=== PATIENT | female | born 1945 | race Caucasian/White ===

== ENCOUNTER 2020-12-21 11:42 | Emergency (ER) | payer MEDICARE ==
[~2020-12-21] VITALS: Ht 167.6 cm; Wt 54.4 kg
[2020-12-21 12:27] LABS: APPEARANCE,URINE Cloudy (CLEAR); BILIRUBIN,URINE Negative (NEGATIVE); COLOR,URINE Yellow (YELLOW); GLUCOSE, URINE (UA) Negative (NEGATIVE); KETONES,URINE 15 mg/dL (NEGATIVE); LEUKOCYTE ESTERASE ,URINE Moderate (NEGATIVE); NITRATE,URINE Negative (NEGATIVE); OCCULT BLOOD,URINE Negative (NEGATIVE); PROTEIN,URINE Trace mg/dL (NEGATIVE)
[2020-12-21 12:30] LABS: RBC,URINE 0-1 /HPF (0-1)
[2020-12-21 12:31] LABS: BACTERIA,URINE Rare /HPF (None Seen); MUCUS,URINE Few LPF (None Seen); SQUAMOUS EPITHELIAL CELL,UR Few /HPF (0-2); WBC,URINE 26-50 /HPF (0-1)
[2020-12-21] MEDS ORDERED: LIDOCAINE HCL-MPF 1% 2ML VIAL ONE (12:43)
[2020-12-21 12:50] LABS: BASOPHILS % (AUTO) 0.4 % (0.0-5.0); EOSINOPHILS % (AUTO) 0.6 % (0.0-8.0); HEMATOCRIT 40.2 % (36-48); LYMPHOCYTES % (AUTO) 18.4 % (21.0-51.0); MEAN CORPUSCULAR HEMOGLOBIN 29.8 pg (27.0-33.0); MEAN CORPUSCULAR HGB CONC 32.6 g/dL (32.0-36.0); MEAN CORPUSCULAR VOLUME 91.6 fL (79-99); MONOCYTES % (AUTO) 2.7 % (3.0-13.0); NEUTROPHILS % (AUTO) 77.6 % (40.0-77.0); PLATELET COUNT (AUTO) 248 K/uL (130-400); RED BLOOD CELL COUNT(AUTO) 4.39 MIL/uL (4.00-5.50); RED CELL DISTRIBUTION WIDTH 12.9 % (11.0-15.5); WHITE BLOOD COUNT (AUTO) 11.8 K/uL (4.8-10.8)
[2020-12-21 13:00] LABS: POTASSIUM 3.9 mmol/L (3.5-5.1)
[2020-12-21] MEDS ORDERED: CEFTRIAXONE 1G VIAL IM ONE (13:00)
[2020-12-21 13:05] LABS: ALBUMIN 3.7 g/dL (3.5-5.0); BILIRUBIN,TOTAL 0.3 mg/dL (0.2-1.0); TOTAL PROTEIN, SERUM 7.2 g/dL (6.0-8.3)
[2020-12-21] MEDS ORDERED: PHENAZOPYRIDINE HCL 200 MG TABLET PO STA (13:57)
[2020-12-21] MEDS ORDERED: PHENAZOPYRIDINE HCL 200 MG TABLET ONE (14:00)
[2020-12-21] MEDS ORDERED: PHEN-847 PO (14:01)
[2020-12-21] MEDS ORDERED: CEPH500B PO (14:01)
[2020-12-21 14:32] VITALS: BP 136/51
[2020-12-21] MEDS ORDERED: PHENAZOPYRIDINE HCL 200 MG TABLET PO ONE (15:00)
== END 2020-12-21 14:33 | disposition home or self-care (01) ==
LOC: EDH 11:42
DX: N39.0 Urinary tract infection, site not specified (principal); N83.291 Other ovarian cyst, right side; Z79.899 Other long term (current) drug therapy
CPT/HCPCS: 36415; 71045; 74176; 80053; 81001; 83690; 84484; 85025; 87077; 87088; 87186; 96372; 99285; J0696; J3490